=== PATIENT | female | born 1955 | race Caucasian/White ===

== ENCOUNTER 2021-12-30 14:44 | Inpatient (IN) | payer MEDICARE, OTHER ==
[~2021-12-30] VITALS: Ht 152.4 cm; Wt 73.0 kg
[2021-12-30 15:25] LABS: COVID AG,FIA SOURCE NASAL SWAB
[2021-12-30 15:29] LABS: BASOPHILS % (AUTO) 0.5 % (0.0-2.0); EOSINOPHILS % (AUTO) 0.2 % (1.0-6.0); HEMATOCRIT 41.5 % (36-46); HEMOGLOBIN 13.9 g/dL (12.0-16.0); LYMPHOCYTES # (AUTO) 1.7 K/uL (1.0-4.8); LYMPHOCYTES % (AUTO) 18.8 % (22.0-44.0); MEAN CORPUSCULAR HEMOGLOBIN 30.5 pg (26.0-34.0); MEAN CORPUSCULAR HGB CONC 33.5 G/dL (31.0-37.0); MEAN CORPUSCULAR VOLUME 91 fL (80-100); MONOCYTES # (AUTO) 0.6 K/uL (0.1-1.0); MONOCYTES % (AUTO) 7.1 % (2.0-9.0); NEUTROPHILS # (AUTO) 6.6 K/uL (1.8-7.7); NEUTROPHILS % (AUTO) 73.4 % (40.0-70.0); PLATELET COUNT (AUTO) 298 K/uL (150-450); RED BLOOD CELL COUNT(AUTO) 4.56 MIL/uL (4.00-5.20); RED CELL DISTRIBUTION WIDTH 14.6 % (11.5-14.5)
[2021-12-30 15:43] LABS: PROTHROMBIN TIME 10.9 SEC (9.4-11.6)
[2021-12-30 15:44] LABS: ANION GAP 10 mmol/L (8-16); CALCIUM, TOTAL 9.7 mg/dL (8.8-10.5); CARBON DIOXIDE 26 mmol/L (22-29); CHLORIDE 101 mmol/L (98-107); CREATININE 0.66 mg/dL (0.60-1.30); GLOMERULAR FILTR. RATE CALC > 60 mL/min (>60); GLUCOSE,RANDOM 119 mg/dL (70-110); POTASSIUM 3.9 mmol/L (3.5-5.1); SODIUM SERUM 137 mmol/L (136-145); UREA NITROGEN, BLOOD 14 mg/dL (7-18)
[2021-12-30 15:49] LABS: AMMONIA 19 umol/L (11-32)
[2021-12-30 16:13] LABS: APPEARANCE,URINE CLEAR (CLEAR); BILIRUBIN,URINE NEGATIVE (NEGATIVE); GLUCOSE, URINE (UA) NEGATIVE (NEGATIVE); KETONES,URINE >=80 mg/dL (NEGATIVE); LEUKOCYTE ESTERASE ,URINE NEGATIVE (NEGATIVE); NITRATE,URINE NEGATIVE (NEGATIVE); OCCULT BLOOD,URINE SMALL (NEGATIVE); PH,URINE 6.5 (5.0-8.0); PROTEIN,URINE NEGATIVE (NEGATIVE); UROBILINOGEN,URINE 0.2 mg/dL (<=1.0)
[2021-12-30 16:22] LABS: AMPHET/METH SCREEN,URINE NEGATIVE (NEGATIVE); BARBITURATE SCREEN, URINE NEGATIVE (NEGATIVE); BENZODIAZEPINES SCREEN,URINE NEGATIVE (NEGATIVE); CANNABINOID SCREEN,URINE NEGATIVE (NEGATIVE); COCAINE SCREEN,URINE NEGATIVE (NEGATIVE); METHADONE SCREEN, URINE NEGATIVE (NEGATIVE); OPIATE SCREEN,URINE NEGATIVE (NEGATIVE)
[2021-12-30 16:25] LABS: PHENCYCLIDINE SCREEN,URINE NEGATIVE (NEGATIVE)
[2021-12-30 16:28] LABS: BACTERIA,URINE Rare /HPF (None Seen); SQUAMOUS EPITHELIAL CELL,UR Few /LPF (None Seen); WBC,URINE 0-2 /HPF (0-5)
[2021-12-30 16:32] LABS: ALANINE AMINOTRANSFERASE 26 U/L (12-78); ALBUMIN 4.3 g/dL (3.4-5.0); ALKALINE PHOSPHATASE 86 U/L (46-116); ASPARTATE AMINOTRANSFERASE 19 U/L (15-37); BILIRUBIN,TOTAL 0.7 mg/dL (0.1-1.0); CREATINE KINASE, TOTAL ONLY 131 U/L (26-192); FREE T4 (FREE THYROXINE) 1.05 ng/dL (0.76-1.46); THYROID STIMULATING HORMONE 1.93 uIU/mL (0.36-3.74); TOTAL PROTEIN, SERUM 8.4 g/dL (6.4-8.2)
[2021-12-30] MEDS ORDERED: MAGNESIUM HYDROXIDE SUSPENSION 30 ML UDCUP PO PRN (17:15)
[2021-12-30] MEDS ORDERED: MORPHINE SULFATE 2 MG/ML SYRINGE IVP PRN (17:15)
[2021-12-30] MEDS ORDERED: HYDROCODONE/ACETAMINOPHEN 5-325 MG TABLET PO PRN (17:15)
[2021-12-30] MEDS ORDERED: MAGNESIUM SULFATE 2 GM, MVI, ADULT NO.1 WITH VIT K 10 ML, THIAMINE 100 MG, FOLIC ACID 1... IV ONE ×5 (17:15)
[2021-12-30] MEDS ORDERED: ZOLPIDEM TARTRATE 5 MG TABLET PO PRN (17:15)
[2021-12-30] MEDS ORDERED: ACETAMINOPHEN 325 MG TABLET PO PRN (17:15)
[2021-12-30] MEDS ORDERED: LORazepam 2 MG/ML VIAL IM PRN (17:15)
[2021-12-30] MEDS ORDERED: BISACODYL 10 MG RECTAL RECTAL SUPPOSITORY PR PRN (17:15)
[2021-12-30] MEDS ORDERED: ONDANSETRON HCL 4 MG/2 ML VIAL IVP PRN (17:15)
[2021-12-30 19:05] VITALS: BP 21/119
[2021-12-30 19:20] VITALS: BP 102/54
[2021-12-30] MEDS ORDERED: SODIUM CHLORIDE 0.9% 250 ML IV ONE (20:30)
[2021-12-30] MEDS: DOCUSATE SODIUM 100 MG CAPSULE PO SCH (20:39)
[2021-12-30 23:52] VITALS: BP 143/84
[2021-12-30] MEDS: HEPARIN SODIUM,PORCINE 5,000 UNITS/ML VIAL SQ SCH (23:55)
[2021-12-31] VITALS (9 sets, daily range): BP systolic 95–150; BP diastolic 62–72
[2021-12-31 08:43] LABS: BASOPHILS % (AUTO) 1.2 % (0.0-2.0); EOSINOPHILS % (AUTO) 1.7 % (1.0-6.0); HEMATOCRIT 38.6 % (36-46); HEMOGLOBIN 13.3 g/dL (12.0-16.0); LYMPHOCYTES # (AUTO) 2.1 K/uL (1.0-4.8); LYMPHOCYTES % (AUTO) 31.4 % (22.0-44.0); MEAN CORPUSCULAR HEMOGLOBIN 31.4 pg (26.0-34.0); MEAN CORPUSCULAR HGB CONC 34.4 G/dL (31.0-37.0); MEAN CORPUSCULAR VOLUME 91 fL (80-100); MONOCYTES # (AUTO) 0.5 K/uL (0.1-1.0); MONOCYTES % (AUTO) 7.9 % (2.0-9.0); NEUTROPHILS # (AUTO) 3.9 K/uL (1.8-7.7); NEUTROPHILS % (AUTO) 57.8 % (40.0-70.0); PLATELET COUNT (AUTO) 275 K/uL (150-450); RED BLOOD CELL COUNT(AUTO) 4.24 MIL/uL (4.00-5.20); RED CELL DISTRIBUTION WIDTH 14.8 % (11.5-14.5)
[2021-12-31 08:50] LABS: ANION GAP 9 mmol/L (8-16); CALCIUM, TOTAL 8.7 mg/dL (8.8-10.5); CARBON DIOXIDE 25 mmol/L (22-29); CHLORIDE 106 mmol/L (98-107); CREATININE 0.66 mg/dL (0.60-1.30); GLOMERULAR FILTR. RATE CALC > 60 mL/min (>60); GLUCOSE,RANDOM 102 mg/dL (70-110); POTASSIUM 3.9 mmol/L (3.5-5.1); SODIUM SERUM 140 mmol/L (136-145); UREA NITROGEN, BLOOD 14 mg/dL (7-18)
[2021-12-31] MEDS: PANTOPRAZOLE SODIUM 40 MG DR TABLET PO SCH (09:04)
[2021-12-31] MEDS: DOCUSATE SODIUM 100 MG CAPSULE PO SCH ×2 (09:04→20:34)
[2021-12-31] MEDS: HEPARIN SODIUM,PORCINE 5,000 UNITS/ML VIAL SQ SCH ×3 (09:04→23:32)
[2021-12-31 17:57] LABS: GLUCOMETER DEV NAME(LOC) 5S.2B; GLUCOSE,POINT OF CARE 106 MG/DL (70-110)
[2021-12-31 17:57] LABS: GLUCOMETER DEV NAME(LOC) 5S.2B; GLUCOSE,POINT OF CARE 136 MG/DL (70-110)
[2022-01-01 01:06] VITALS: BP 110/64
[2022-01-01 05:00] VITALS: BP 121/82
[2022-01-01 07:59] VITALS: BP 147/85
[2022-01-01] MEDS: HEPARIN SODIUM,PORCINE 5,000 UNITS/ML VIAL SQ SCH ×2 (08:00→16:00)
[2022-01-01] MEDS: PANTOPRAZOLE SODIUM 40 MG DR TABLET PO SCH (09:00)
[2022-01-01] MEDS: DOCUSATE SODIUM 100 MG CAPSULE PO SCH (09:00)
[2022-01-01 10:31] VITALS: BP 147/85
[2022-01-01 11:59] VITALS: BP 147/78
[2022-01-01 17:24] VITALS: BP 135/84
== END 2022-01-01 18:30 | DRG 72 ==
LOC: EMS 14:53 → 5S 16:35
PROVIDERS: ADMIT Internal Medicine; ATTEND Internal Medicine
DX: G93.40 Encephalopathy, unspecified (principal); F41.9 Anxiety disorder, unspecified; I10 Essential (primary) hypertension; E66.3 Overweight; F29 Unspecified psychosis not due to a substance or known physiological condition; Z20.822 Contact with and (suspected) exposure to COVID-19; Z86.16 Personal history of COVID-19; Z68.31 Body mass index [BMI] 31.0-31.9, adult; Z79.899 Other long term (current) drug therapy
CPT/HCPCS: 51702; 70450; 80048; 80053; 81001; 82140; 82550; 82962; 84439; 84443; 84484; 85025; 85610; 85730; 92610; 93005; 99291; J1644; J2060; J3411; J3475; J3490; J7030; J7050

== ENCOUNTER 2022-01-01 15:48 | Inpatient (IN) | payer MEDICARE, MEDICAID ==
[~2022-01-01] VITALS: Ht 154.9 cm; Wt 79.8 kg
[2022-01-01] MEDS ORDERED: ZOLPIDEM TARTRATE 10 MG TABLET PO PRN (16:15)
[2022-01-01 19:00] VITALS: BP 129/71
[2022-01-01 19:13] VITALS: BP 129/70
[2022-01-01] MEDS: LORazepam 2 MG TABLET PO PRN (19:13)
[2022-01-01] MEDS: HALOPERIDOL 5 MG TABLET PO PRN (19:13)
[2022-01-01 20:00] VITALS: BP 143/62
[2022-01-01 21:29] VITALS: BP 143/62
[2022-01-02] MEDS: LORazepam 2 MG TABLET PO PRN ×2 (00:32→20:49)
[2022-01-02 00:55] VITALS: BP 130/74
[2022-01-02 07:18] LABS: CHOL/HDL RATIO 2.5 (3.9-5.7); FREE T4 (FREE THYROXINE) 1.04 ng/dL (0.76-1.46); THYROID STIMULATING HORMONE 4.91 uIU/mL (0.36-3.74)
[2022-01-02 08:05] VITALS: BP 134/76
[2022-01-02] MEDS: OLANZapine 5 MG RAPDIS TABLET PO SCH ×2 (10:30→20:49)
[2022-01-02 16:54] VITALS: BP 162/77
[2022-01-02] MEDS ORDERED: GuaiFENesin/D-METHORPHAN [SUGAR-FREE] 200-20MG/10 ML SYRUP UDCUP PO PRN (18:30)
[2022-01-02] MEDS ORDERED: LOPERAMIDE HCL 2 MG CAPSULE PO PRN (18:30)
[2022-01-02] MEDS ORDERED: ALBUTEROL SULFATE HFA 90 MCG/PUFF 8 GM INHALER IH PRN (18:30)
[2022-01-02] MEDS ORDERED: MAGNESIUM HYDROXIDE SUSPENSION 30 ML UDCUP PO PRN (18:30)
[2022-01-02] MEDS ORDERED: ACETAMINOPHEN 325 MG TABLET PO PRN (18:30)
[2022-01-02] MEDS ORDERED: NICOTINE 14 MG/24 HOUR PATCH TD PRN (18:30)
[2022-01-02] MEDS ORDERED: CloNIDine HCL 0.1 MG TABLET PO PRN (18:30)
[2022-01-02] MEDS ORDERED: DOCUSATE SODIUM 100 MG CAPSULE PO PRN (18:30)
[2022-01-02] MEDS ORDERED: ONDANSETRON HCL 4 MG TABLET PO PRN (18:30)
[2022-01-02] MEDS ORDERED: IBUPROFEN 400 MG TABLET PO PRN (18:30)
[2022-01-02] MEDS ORDERED: MAG HYDROX/AL HYDROX/SIMETH ES 30 ML SUSPENSION UDCUP PO PRN (18:30)
[2022-01-02] MEDS ORDERED: PETROLATUM,WHITE 28 GM JELLY TP PRN (18:30)
[2022-01-02] MEDS: HALOPERIDOL 5 MG TABLET PO PRN (20:49)
[2022-01-03 08:20] VITALS: BP 139/62
[2022-01-03] MEDS: METOPROLOL SUCCINATE 25 MG ER TABLET PO SCH (09:53)
[2022-01-03] MEDS: OLANZapine 5 MG RAPDIS TABLET PO SCH ×2 (09:53→20:07)
[2022-01-03 11:38] LABS: HEMOGLOBIN A1C 5.7 % (3.8-5.6)
[2022-01-03 11:51] LABS: ALANINE AMINOTRANSFERASE 22 U/L (12-78); ALBUMIN 3.7 g/dL (3.4-5.0); ALKALINE PHOSPHATASE 77 U/L (46-116); ANION GAP 14 mmol/L (8-16); ASPARTATE AMINOTRANSFERASE 18 U/L (15-37); BILIRUBIN,TOTAL 0.5 mg/dL (0.1-1.0); CALCIUM, TOTAL 9.6 mg/dL (8.8-10.5); CARBON DIOXIDE 26 mmol/L (22-29); CHLORIDE 107 mmol/L (98-107); CREATININE 0.86 mg/dL (0.60-1.30); GLOMERULAR FILTR. RATE CALC > 60 mL/min (>60); GLUCOSE,RANDOM 109 mg/dL (70-110); POTASSIUM 3.8 mmol/L (3.5-5.1); SODIUM SERUM 147 mmol/L (136-145); TOTAL PROTEIN, SERUM 7.4 g/dL (6.4-8.2); UREA NITROGEN, BLOOD 20 mg/dL (7-18)
[2022-01-03 16:16] VITALS: BP 107/62
[2022-01-04 08:07] VITALS: BP 153/85
[2022-01-04] MEDS: METOPROLOL SUCCINATE 25 MG ER TABLET PO SCH (10:11)
[2022-01-04] MEDS: OLANZapine 5 MG RAPDIS TABLET PO SCH ×2 (10:12→20:32)
[2022-01-04 16:08] VITALS: BP 131/82
[2022-01-04] MEDS: HALOPERIDOL 5 MG TABLET PO PRN (18:15)
[2022-01-05] MEDS: OLANZapine 5 MG RAPDIS TABLET PO SCH ×2 (08:54→20:57)
[2022-01-05] MEDS: METOPROLOL SUCCINATE 25 MG ER TABLET PO SCH (08:55)
[2022-01-05 09:05] VITALS: BP 149/73
[2022-01-05 13:30] LABS: COVID AG,FIA SOURCE NASOPHARYNGEAL
[2022-01-05 17:03] VITALS: BP 157/73
[2022-01-06 08:02] VITALS: BP 140/69
[2022-01-06] MEDS: OLANZapine 5 MG RAPDIS TABLET PO SCH ×2 (08:49→21:00)
[2022-01-06] MEDS: METOPROLOL SUCCINATE 25 MG ER TABLET PO SCH (08:50)
[2022-01-06 16:00] VITALS: BP 137/71
[2022-01-07 08:02] VITALS: BP 156/80
[2022-01-07] MEDS: METOPROLOL SUCCINATE 25 MG ER TABLET PO SCH (08:24)
[2022-01-07] MEDS: OLANZapine 5 MG RAPDIS TABLET PO SCH (08:24)
[2022-01-07] MEDS ORDERED: OLAN5TAB94 PO (13:06)
[2022-01-07] MEDS ORDERED: METO25XL PO (13:58)
== END 2022-01-07 15:25 | disposition home or self-care (01) | DRG 885 ==
LOC: 3EX 17:42
PROVIDERS: ADMIT Psychiatry & Neurology Psychiatry; ATTEND Psychiatry & Neurology Psychiatry
DX: F29 Unspecified psychosis not due to a substance or known physiological condition (principal); E87.0 Hyperosmolality and hypernatremia; I10 Essential (primary) hypertension; Z20.822 Contact with and (suspected) exposure to COVID-19; E66.9 Obesity, unspecified; Z68.33 Body mass index [BMI] 33.0-33.9, adult; Z91.81 History of falling
CPT/HCPCS: 80053; 80061; 83036; 84439; 84443; 87081; G0378